=== PATIENT | male | born 1965 | race American Indian/Alaskan Native ===

== ENCOUNTER 2017-07-12 22:11 | Emergency (ER) | payer OTHER ==
[2017-07-12 22:52] VITALS: BP 125/79
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
== END 2017-07-13 01:42 | disposition home or self-care (01) ==
LOC: ED 22:11
DX: S80.02XA Contusion of left knee, initial encounter (principal); S80.01XA Contusion of right knee, initial encounter; S09.90XA Unspecified injury of head, initial encounter; S60.221A Contusion of right hand, initial encounter; V49.49XA Driver injured in collision with other motor vehicles in traffic accident, initial encounter; Y93.89 Activity, other specified; Y99.8 Other external cause status; Y92.410 Unspecified street and highway as the place of occurrence of the external cause
CPT/HCPCS: 70450; 99284

== ENCOUNTER 2017-11-12 13:25 | Emergency (ER) | payer OTHER ==
[2017-11-12 13:36] VITALS: BP 147/89
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
--- NOTE | 2017-11-12 15:18 | XRay Report ---
Right knee 2 views: History: Knee swelling. Findings: No acute abnormality. No fracture or dislocation. Suspicion of minimal fluid in the suprapatellar bursa. Impression: No obvious acute changes. If pain and swelling persists MRI scan may be recommended.
== END 2017-11-12 14:58 | disposition home or self-care (01) ==
LOC: ED 13:25
DX: M25.461 Effusion, right knee (principal); I10 Essential (primary) hypertension

== ENCOUNTER 2019-08-15 10:39 | Emergency (ER) | payer OTHER ==
--- NOTE | 2019-08-15 10:48 | Emergency Department Report ---
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 Patient denies any fever but does admit to headache and inability to sleep comfortably. Patient states minimal exertion causes him to have shortness of breath. Patient has a past medical history of sleep apnea, hypertension, sinuses, seasonal allergies. Patient has had close contact with [employer] positive employees as well as patients. MD Complaint: cough, other (SOB,Headache, body aches) Onset/Timin -: week(s) Consistency: constant Improves With: nothing Worsens With: activity, deep breaths Context: sick contacts Associated Symptoms: myalgias, headache, nasal congestion, sore throat, cough, shortness of breath, other (Sore throat) Treatments Prior to Arrival: "cold medicine" - Related Data Home Medications Medication Instructions Recorded Confirmed Last Taken Losartan/Hydrochlorothiazide 1 each PO QDAY 03/17/16 03/17/16 03/17/16 06:30 [Losartan-Hctz 100-25 mg Tab] traZODone [Desyrel] 100 mg PO QHS 03/17/16 03/17/16 03/16/16 22:00 Previous Rx's Medication Instructions Recorded Last Taken Type amLODIPine 5 mg PO DAILY #30 tab 03/17/16 Unknown Rx Metaxalone [Skelaxin] 800 mg PO TID #30 tablet 07/13/17 Unknown Rx Ondansetron [Zofran Odt] 4 mg PO Q8HR PRN #14 tab.rapdis 07/13/17 Unknown Rx Ondansetron [Zofran Odt] 4 mg PO Q8HR PRN #14 tab.rapdis 07/13/17 Unknown Rx traMADoL [Ultram 50 MG tab] 50 mg PO Q4HR PRN #14 tablet 07/13/17 Unknown Rx traMADoL [Ultram 50 MG tab] 50 mg PO Q4HR PRN #14 tablet 07/13/17 Unknown Rx Ibuprofen [Motrin] 800 mg PO Q8HR PRN #20 tablet 11/12/17 Unknown Rx traMADoL [Ultram] 50 mg PO Q6HR PRN #10 tablet 11/12/17 Unknown Rx Albuterol Sulfate [Proair 90 mcg IH QID PRN #1 aer.pow.ba 08/15/19 Unknown Rx Respiclick] predniSONE [Deltasone] 20 mg PO QDAY 5 Days #5 tab 08/15/19 Unknown Rx Allergies Allergy/AdvReac Type Severity Reaction Status Date / Time No Known Allergies Allergy Verified 03/17/16 08:55 ED Review of Systems ROS: Stated complaint: CAL Other details as noted in HPI ED Past Medical Hx - Past Medical History Hx Hypertension: Yes - Surgical History Additional Surgical History: left foot surgery, 2016 Right foot surgery 2009 - Social History Smoking Status: Never Smoker Substance Use Type: Alcohol - Medications Home Medications: Home Medications Medication Instructions Recorded Confirmed Last Taken Type Losartan/Hydrochlorothiazide 1 each PO QDAY 03/17/16 03/17/16 03/17/16 06:30 History [Losartan-Hctz 100-25 mg Tab] amLODIPine 5 mg PO DAILY #30 tab 03/17/16 Unknown Rx traZODone [Desyrel] 100 mg PO QHS 03/17/16 03/17/16 03/16/16 22:00 History Metaxalone [Skelaxin] 800 mg PO TID #30 tablet 07/13/17 Unknown Rx Ondansetron [Zofran Odt] 4 mg PO Q8HR PRN #14 tab.rapdis 07/13/17 Unknown Rx Ondansetron [Zofran Odt] 4 mg PO Q8HR PRN #14 tab.rapdis 07/13/17 Unknown Rx traMADoL [Ultram 50 MG tab] 50 mg PO Q4HR PRN #14 tablet 07/13/17 Unknown Rx traMADoL [Ultram 50 MG tab] 50 mg PO Q4HR PRN #14 tablet 07/13/17 Unknown Rx Ibuprofen [Motrin] 800 mg PO Q8HR PRN #20 tablet 11/12/17 Unknown Rx traMADoL [Ultram] 50 mg PO Q6HR PRN #10 tablet 11/12/17 Unknown Rx Albuterol Sulfate [Proair 90 mcg IH QID PRN #1 aer.pow.ba 08/15/19 Unknown Rx Respiclick] predniSONE [Deltasone] 20 mg PO QDAY 5 Days #5 tab 08/15/19 Unknown Rx ED Physical Exam - General General appearance: alert, in no apparent distress - Head Head exam: Present: atraumatic, normocephalic - Eye Eye exam: Present: normal appearance - ENT ENT exam: Present: mucous membranes moist - Respiratory Respiratory exam: Present: normal lung sounds bilaterally. Absent: respiratory distress - Cardiovascular Cardiovascular Exam: Present: regular rate, normal rhythm. Absent: systolic murmur, diastolic murmur, rubs, gallop - GI/Abdominal GI/Abdominal exam: Present: soft, normal bowel sounds - Neurological Exam Neurological exam: Present: alert, oriented X3, normal gait - Psychiatric Psychiatric exam: Present: normal affect, normal mood - Skin Skin exam: Present: warm, dry, intact, normal color. Absent: rash ED Course Vital Signs 08/15/19 10:48 Temperature 98.9 F Pulse Rate 56 L Respiratory 18 Rate Blood Pressure 128/56 O2 Sat by Pulse 98 Oximetry ED Medical Decision Making - Lab Data Result diagrams: 08/15/19 11:01 - Radiology Data Radiology results: report reviewed Print Report Referring Physician:BRUCE LEYVAPatient Name:NAE SANTOROPatient ID:[id number] of :[id number]:MaleAccession:[id number] Date:[id number] Status:Finalized Findings [address] [address] XRay Report Signed Patient: NAE SANTORO MR#: [id number] : 1965 Acct:[id number] Age/Sex: 54 / M ADM Date: 08/15/19 Loc: ED Attending Dr: Ordering Physician: FRANSISCO REINA Date of Service: 08/15/19 Procedure(s): XR chest routine 2V Accession Number(s): [id number] cc: FRANSISCO REINA Fluoro Time In Minutes: CHEST 2 VIEWS INDICATION / CLINICAL INFORMATION: sob,cough and rales. COMPARISON: None available. FINDINGS: SUPPORT DEVICES: None. HEART / MEDIASTINUM: No significant abnormality. LUNGS / PLEURA: No significant pulmonary or pleural abnormality. No pneumothorax. ADDITIONAL FINDINGS: No significant additional findings. IMPRESSION: 1. No acute findings. Signer Name: Leonel Vickers MD Signed: 08/15/2019 11:45 AM Workstation Name: [id number] Transcribed By: TL Dictated By: Leonel Vickers MD Electronically Authenticated By: Leonel Vickers MD Signed Date/Time: 08/15/19 1145 DD/ 1144 TD/TT: Critical care attestation.: If time is entered above; I have spent that time in minutes in the direct care of this critically ill patient, excluding procedure time. ED Disposition Clinical Impression: Dyspnea on exertion, Cough, Generalized body aches, Ventricular bigeminy Disposition: DC-01 TO HOME OR SELFCARE Is pt being admited?: No Does the pt Need Aspirin: No Condition: Stable Additional Instructions: Chest x-ray looks normal without acute abnormalities. Blood work is stable. Please take prednisone and albuterol inhaler as needed for shortness of breath. Tylenol for body aches. Follow-up with cardiology of listed 1 below for your convenience for your abnormal EKG. Prescriptions: predniSONE [Deltasone] 20 mg PO QDAY 5 Days #5 tab Albuterol Sulfate [Proair Respiclick] 90 mcg IH QID PRN #1 aer.pow.ba PRN Reason: Shortness Of Breath Referrals: Your, primary care provider [Other] - 3-5 Days DOMENICA SEAMAN MD [Staff Physician] - 3-5 Days [facility] [Provider Group] - 3-5 Days Forms: Work/School Release Form(ED)
[2019-08-15 10:50] VITALS: BP 128/56
[2019-08-15 11:41] LABS: Basophils % (Auto) 0.5 % (0.0-1.8); Eosinophils % (Auto) 0.2 % (0.0-4.3); Hematocrit 41.3 % (35.5-45.6); Lymphocytes % (Auto) 36.9 % (13.4-35.0); Mean Corpuscular HGB Conc 32 % (32-34); Mean Corpuscular Volume 71 fl (84-94); Monocytes # (Auto) 0.5 K/mm3 (0.0-0.8); Monocytes % (Auto) 10.2 % (0.0-7.3); Platelet Count 178 K/mm3 (140-440); Red Blood Count 5.82 M/mm3 (3.65-5.03); Red Cell Distribution Width 15.5 % (13.2-15.2)
--- NOTE | 2019-08-15 11:49 | XRay Report ---
CHEST 2 VIEWS INDICATION / CLINICAL INFORMATION: sob,cough and rales. COMPARISON: None available. FINDINGS: SUPPORT DEVICES: None. HEART / MEDIASTINUM: No significant abnormality. LUNGS / PLEURA: No significant pulmonary or pleural abnormality. No pneumothorax. ADDITIONAL FINDINGS: No significant additional findings. IMPRESSION: 1. No acute findings. Signer Name: Leonel Vickers MD Signed: 08/15/2019 11:45 AM Workstation Name: [id number]
[2019-08-15 12:06] LABS: Alanine Aminotransferase 20 units/L (7-56); Albumin 3.9 g/dL (3.9-5); BUN/Creatinine Ratio 9; Blood Urea Nitrogen 12 mg/dL (9-20); Calcium 9.2 mg/dL (8.4-10.2); Hemolysis Index 8
== END 2019-08-15 12:24 | disposition home or self-care (01) ==
LOC: ED 10:39
DX: R06.09 Other forms of dyspnea (principal); R05 Cough; R00.8 Other abnormalities of heart beat; M79.10 Myalgia, unspecified site; I10 Essential (primary) hypertension; Z98.890 Other specified postprocedural states; Z79.899 Other long term (current) drug therapy
CPT/HCPCS: 36415; 71046; 80053; 82728; 83615; 84145; 85025; 85379; 86140; 93005

== ENCOUNTER 2020-04-30 11:58 | Emergency (ER) | payer OTHER ==
[2020-04-30 12:11] VITALS: BP 152/96
--- NOTE | 2020-04-30 12:14 | Emergency Department Report ---
ED Upper Extremity Inj HPI - General Stated Complaint: RT SHOULDER INJURY Time Seen by Provider: 04/30/20 12:09 - History of Present Illness Initial Comments: 55-year-old -[place] male presents to the emergency room concern for right shoulder and right upper bicep pain with ecchymosis. Patient states he believes he lifted something heavy but was not aware of it until the next day or 2 when he noticed he had large hematoma. Patient denies any falls. Denies any direct blow. No shortness of breath no chest pain. Patient does have chronic h istory of neck pain and chronic right shoulder pain. Patient is a past medical history of high blood pressure and is currently being followed by primary care Dr. Christian. Complaint: Injury to:: right, shoulder Onset/Timin -: days(s) Other Extremity Injury: Arm: Right, Shoulder: Right Other Injuries: none Handedness: right Severity scale (0 -10): 5 Improves With: none Worsens With: movement of extremity Associated Symptoms: denies other symptoms - Related Data Home Medications Medication Instructions Recorded Confirmed Last Taken Losartan/Hydrochlorothiazide 1 each PO QDAY 03/17/16 03/17/16 03/17/16 06:30 [Losartan-Hctz 100-25 mg Tab] traZODone [Desyrel] 100 mg PO QHS 03/17/16 03/17/16 03/16/16 22:00 Previous Rx's Medication Instructions Recorded Last Taken Type amLODIPine 5 mg PO DAILY #30 tab 03/17/16 Unknown Rx Metaxalone [Skelaxin] 800 mg PO TID #30 tablet 07/13/17 Unknown Rx Ondansetron [Zofran Odt] 4 mg PO Q8HR PRN #14 tab.rapdis 07/13/17 Unknown Rx Ondansetron [Zofran Odt] 4 mg PO Q8HR PRN #14 tab.rapdis 07/13/17 Unknown Rx traMADoL [Ultram 50 MG tab] 50 mg PO Q4HR PRN #14 tablet 07/13/17 Unknown Rx traMADoL [Ultram 50 MG tab] 50 mg PO Q4HR PRN #14 tablet 07/13/17 Unknown Rx Ibuprofen [Motrin] 800 mg PO Q8HR PRN #20 tablet 11/12/17 Unknown Rx traMADoL [Ultram] 50 mg PO Q6HR PRN #10 tablet 11/12/17 Unknown Rx Albuterol Sulfate [Proair 90 mcg IH QID PRN #1 aer.pow.ba 08/15/19 Unknown Rx Respiclick] predniSONE [Deltasone] 20 mg PO QDAY 5 Days #5 tab 08/15/19 Unknown Rx traMADoL [Ultram 50 MG tab] 50 mg PO Q6HR PRN #15 tablet 04/30/20 Unknown Rx Allergies Allergy/AdvReac Type Severity Reaction Status Date / Time No Known Allergies Allergy Verified 03/17/16 08:55 ED Review of Systems ROS: Stated complaint: RT SHOULDER INJURY Other details as noted in HPI Comment: All other systems reviewed and negative ED Past Medical Hx - Past Medical History Hx Hypertension: Yes - Surgical History Additional Surgical History: left foot surgery, 2016 Right foot surgery 2009 - Social History Smoking Status: Never Smoker Substance Use Type: Alcohol - Medications Home Medications: Home Medications Medication Instructions Recorded Confirmed Last Taken Type Losartan/Hydrochlorothiazide 1 each PO QDAY 03/17/16 03/17/16 03/17/16 06:30 History [Losartan-Hctz 100-25 mg Tab] amLODIPine 5 mg PO DAILY #30 tab 03/17/16 Unknown Rx traZODone [Desyrel] 100 mg PO QHS 03/17/16 03/17/16 03/16/16 22:00 History Metaxalone [Skelaxin] 800 mg PO TID #30 tablet 07/13/17 Unknown Rx Ondansetron [Zofran Odt] 4 mg PO Q8HR PRN #14 tab.rapdis 07/13/17 Unknown Rx Ondansetron [Zofran Odt] 4 mg PO Q8HR PRN #14 tab.rapdis 07/13/17 Unknown Rx traMADoL [Ultram 50 MG tab] 50 mg PO Q4HR PRN #14 tablet 07/13/17 Unknown Rx traMADoL [Ultram 50 MG tab] 50 mg PO Q4HR PRN #14 tablet 07/13/17 Unknown Rx Ibuprofen [Motrin] 800 mg PO Q8HR PRN #20 tablet 11/12/17 Unknown Rx traMADoL [Ultram] 50 mg PO Q6HR PRN #10 tablet 11/12/17 Unknown Rx Albuterol Sulfate [Proair 90 mcg IH QID PRN #1 aer.pow.ba 08/15/19 Unknown Rx Respiclick] predniSONE [Deltasone] 20 mg PO QDAY 5 Days #5 tab 08/15/19 Unknown Rx traMADoL [Ultram 50 MG tab] 50 mg PO Q6HR PRN #15 tablet 04/30/20 Unknown Rx ED Physical Exam - General General appearance: alert, in no apparent distress - Head Head exam: Present: atraumatic, normocephalic - Eye Eye exam: Present: normal appearance - ENT ENT exam: Present: mucous membranes moist - Neck Neck exam: Present: normal inspection, full ROM - Respiratory Respiratory exam: Absent: accessory muscle use - Cardiovascular Cardiovascular Exam: Present: regular rate, normal rhythm. Absent: systolic murmur, diastolic murmur, rubs, gallop - Expanded Upper Extremity Exam Right Shoulder Exam: Present: full ROM, tenderness. Absent: deformity, crepidus Upper Arm exam: Present: full ROM, swelling, ecchymosis Elbow exam: Present: normal inspection Forearm Wrist exam: Present: normal inspection Hand Wrist exam: Present: normal inspection - Back Exam Back exam: Present: normal inspection - Neurological Exam Neurological exam: Present: alert, oriented X3, normal gait - Psychiatric Psychiatric exam: Present: normal affect, normal mood - Skin Skin exam: Present: warm, dry, intact, normal color. Absent: rash ED Course Vital Signs 04/30/20 12:10 Temperature 98.1 F Pulse Rate 71 Respiratory 16 Rate Blood Pressure 152/96 [152/96] O2 Sat by Pulse 98 Oximetry ED Medical Decision Making - Lab Data Result diagrams: 04/30/20 12:23 - Radiology Data Radiology results: report reviewed Patient: NAE SANTORO MR#: [id number] : 1965 Acct:[id number] Age/Sex: 55 / M ADM Date: 04/30/20 Loc: ED Attending Dr: Ordering Physician: FRANSISCO REINA Date of Service: 04/30/20 Procedure(s): XR shoulder 2+V RT Accession Number(s): [id number] cc: FRANSISCO REINA Fluoro Time In Minutes: RIGHT SHOULDER 3 VIEWS INDICATION: Acute right shoulder pain. COMPARISON: None. IMPRESSION: Normal bone mineralization. Mild osteoarthritic changes are identified. No evidence for fracture, dislocation or ligamentous injury. Focal calcification overlies the distal portions of the supraspinatus or infraspinatus tendon suggesting calcific tendinitis. Signer Name: John Egan Jr, MD Signed: 04/30/2020 12:44 PM Workstation Name: [id number] Transcribed By: TTR Dictated By: JOHN EGAN JR, MD Electronically Authenticated By: JOHN EGAN JR, MD Signed Date/Time: 04/30/20 1244 DD/ 1243 TD/TT: - Medical Decision Making 55-year-old -[place] male presents to the emergency room concern for right shoulder and right upper bicep pain with ecchymosis. Patient states he believes he lifted something heavy but was not aware of it until the next day or 2 when he noticed he had large hematoma. Patient denies any falls. Denies any direct blow. No shortness of breath no chest pain. Patient does have chronic history of neck pain and chronic right shoulder pain. Patient is a past medical history of high blood pressure and is currently being followed by primary care Dr. Christian. CBC, PT PTT x-ray of right shoulder X-ray of right shoulder Normal bone mineralization. Mild osteoarthritic changes are identified. No evidence for fracture, dislocation or ligamentous injury. Focal calcification overlies the distal portions of the supraspinatus or infraspinatus tendon suggesting calcific tendinitis. PT PTT within normal limits. CBC shows a mild iron deficiency otherwise no anemia Critical care attestation.: If time is entered above; I have spent that time in minutes in the direct care of this critically ill patient, excluding procedure time. ED Disposition Clinical Impression: Shoulder pain, right Qualifiers: Chronicity: acute Qualified Code(s): M25.511 - Pain in right shoulder Disposition: DC-01 TO HOME OR SELFCARE Is pt being admited?: No Does the pt Need Aspirin: No Condition: Stable Instructions: Shoulder Pain, [id number], Joint Pain, [id number] Additional Instructions: Neg shoulder x-ray. Prescriptions: traMADoL [Ultram 50 MG tab] 50 mg PO Q6HR PRN #15 tablet PRN Reason: Pain Forms: Work/School Release Form(ED)
--- NOTE | 2020-04-30 12:49 | XRay Report ---
RIGHT SHOULDER 3 VIEWS INDICATION: Acute right shoulder pain. COMPARISON: None. IMPRESSION: Normal bone mineralization. Mild osteoarthritic changes are identified. No evidence for fracture, dislocation or ligamentous injury. Focal calcification overlies the distal portions of the supraspinatus or infraspinatus tendon suggesting calcific tendinitis. Signer Name: John Egan Jr, MD Signed: 04/30/2020 12:44 PM Workstation Name: [id number]
[2020-04-30 13:40] LABS: Basophils # (Auto) 0.1 K/mm3 (0.0-0.1); Basophils % (Auto) 0.8 % (0.0-1.8); Eosinophils # (Auto) 0.1 K/mm3 (0.0-0.4); Eosinophils % (Auto) 1.1 % (0.0-4.3); Hemoglobin 11.7 gm/dl (11.8-15.2); Lymphocytes # (Auto) 2.5 K/mm3 (1.2-5.4); Lymphocytes % (Auto) 35.1 % (13.4-35.0); Mean Corpuscular HGB Conc 32 % (32-34); Mean Corpuscular Volume 70 fl (84-94); Monocytes # (Auto) 0.6 K/mm3 (0.0-0.8); Monocytes % (Auto) 8.2 % (0.0-7.3); Platelet Count 229 K/mm3 (140-440); Red Blood Count 5.27 M/mm3 (3.65-5.03)
[2020-04-30 13:48] LABS: INR 0.97 (0.87-1.13)
[2020-04-30 13:49] LABS: Partial Thromboplastin Time 27.5 Sec. (24.2-36.6)
== END 2020-04-30 14:50 | disposition home or self-care (01) ==
LOC: ED 11:58
DX: M25.511 Pain in right shoulder (principal); I10 Essential (primary) hypertension; Z79.899 Other long term (current) drug therapy; Z98.890 Other specified postprocedural states
CPT/HCPCS: 36415; 85025; 85610; 85730

== ENCOUNTER 2021-10-09 18:22 | Emergency (ER) | payer OTHER ==
--- NOTE | 2021-10-09 19:46 | Vascular Lab Report ---
DUPLEX DOPPLER LOWER EXTREMITY VEINS, RIGHT INDICATION / CLINICAL INFORMATION: RLE pain and swelling, hx of DVT. TECHNIQUE: Duplex doppler imaging was performed through the veins of the right lower extremity using venous comp ression and other maneuvers. COMPARISON: None available. FINDINGS: RIGHT COMMON FEMORAL VEIN: Negative. RIGHT FEMORAL VEIN: Negative. RIGHT POPLITEAL VEIN: Negative. RIGHT CALF VEINS: Negative. ADDITIONAL FINDINGS: None. IMPRESSION: 1. No sonographic evidence for DVT in the right lower extremity. Signer Name: Leonel Vickers MD Signed: 10/09/2021 7:41 PM Workstation Name: [id number]
[2021-10-09] MEDS ORDERED: oxyCODONE /ACETAMINOPHEN 5-325MG TAB PO ONE (19:48)
[2021-10-09] MEDS ORDERED: ONDANSETRON 4 MG ODT TAB PO ONE (19:48)
[2021-10-09] MEDS ORDERED: KETOROLAC 30 MG/1 ML INJ IM ONE (19:48)
[2021-10-09] MEDS ORDERED: dexAMETHasone 20 MG/5 ML VIAL IM ONE (19:48)
[2021-10-09 20:15] LABS: Basophils # (Auto) 0.1 K/mm3 (0.0-0.1); Basophils % (Auto) 0.7 % (0.0-1.8); Eosinophils # (Auto) 0.1 K/mm3 (0.0-0.4); Eosinophils % (Auto) 0.8 % (0.0-4.3); Hematocrit 39.1 % (35.5-45.6); Hemoglobin 12.2 gm/dl (11.8-15.2); Lymphocytes # (Auto) 3.7 K/mm3 (1.2-5.4); Lymphocytes % (Auto) 36.5 % (13.4-35.0); Mean Corpuscular HGB Conc 31 % (32-34); Mean Corpuscular Volume 70 fl (84-94); Monocytes # (Auto) 0.8 K/mm3 (0.0-0.8); Monocytes % (Auto) 7.9 % (0.0-7.3); Platelet Count 212 K/mm3 (140-440); Red Blood Count 5.59 M/mm3 (3.65-5.03); Red Cell Distribution Width 16.1 % (13.2-15.2)
--- NOTE | 2021-10-09 20:21 | XRay Report ---
RIGHT FOOT 3 VIEW(S) INDICATION / CLINICAL INFORMATION: Pain COMPARISON: None available. FINDINGS: BONES / JOINT(S): No acute fracture or subluxation. Previous bunionectomy and chevron osteotomy with 2 screws seen within the first metatarsal shaft. Mild degenerative arthrosis first MTP joint. SOFT TISSUES: No significant abnormality. ADDITIONAL FINDINGS: None. IMPRESSION: 1. No acute findings. Signer Name: Leonel Vickers MD Signed: 10/09/2021 8:17 PM Workstation Name: [id number]
--- NOTE | 2021-10-09 20:35 | Emergency Department Report ---
ED Extremity Problem HPI - General Chief complaint: Extremity Problem,Nontraumatic Stated complaint: RT FOOT Source: patient Mode of arrival: Ambulatory Limitations: No Limitations - History of Present Illness Initial comments: Patient is a 56-year-old male with a history of hypertension who presents to the ED with complaint of acute onset persistent nontraumatic right foot pain for the last 5 days. Patient states that he has been on his feet most of the week at work but that the pain has been progressively getting worse like that in the last 12 hours he has not been able to bear weight on the right foot because of worsening pain. Patient states that the pain starts on the lateral right foot and radiates proximally to the right calf. Patient denies fall, traumatic in jury, heavy lifting, chest pain or shortness of breath, numbness and tingling or weakness of right foot, dizziness, syncope, nausea and vomiting, low back pain, fever and chills. MD Complaint: extremity pain (right foot pain), extremity swelling (Right foot pain and swelling), joint swelling (Right lateral foot swelling and pain), joint paint -: Sudden, days(s) (5) Location: right, lower extremity (Right foot pain and swelling) History of Same: No -: Yes arthralgia (Right foot presents with), No fever, No associated dyspnea, No associated chest pain Radiation: distal Severity scale (0 -10): 8 Quality: aching, sharp Consistency: constant Improves with: nothing Worsens with: weight bearing, walking, exertion, palpation Associated Symptoms: denies other symptoms, arthralgias (Right foot pain and swelling). denies: chest pain, shortness of breath, fever, myalgias - Related Data Home Medications Medication Instructions Recorded Confirmed Last Taken Losartan/Hydrochlorothiazide 1 each PO QDAY 03/17/16 03/17/16 03/17/16 06:30 [Losartan-Hctz 100-25 mg Tab] traZODone [Desyrel] 100 mg PO QHS 03/17/16 03/17/16 03/16/16 22:00 Previous Rx's Medication Instructions Recorded Last Taken Type amLODIPine 5 mg PO DAILY #30 tab 03/17/16 Unknown Rx Ibuprofen [Motrin] 800 mg PO Q8HR PRN #30 tablet 03/15/17 Unknown Rx Metaxalone [Skelaxin] 800 mg PO TID #30 tablet 07/13/17 Unknown Rx Ondansetron [Zofran Odt] 4 mg PO Q8HR PRN #14 tab.rapdis 07/13/17 Unknown Rx Ondansetron [Zofran Odt] 4 mg PO Q8HR PRN #14 tab.rapdis 07/13/17 Unknown Rx traMADoL [Ultram 50 MG tab] 50 mg PO Q4HR PRN #14 tablet 07/13/17 Unknown Rx traMADoL [Ultram 50 MG tab] 50 mg PO Q4HR PRN #14 tablet 07/13/17 Unknown Rx Ibuprofen [Motrin] 800 mg PO Q8HR PRN #20 tablet 11/12/17 Unknown Rx traMADoL [Ultram] 50 mg PO Q6HR PRN #10 tablet 11/12/17 Unknown Rx Albuterol Sulfate [Proair 90 mcg IH QID PRN #1 aer.pow.ba 08/15/19 Unknown Rx Respiclick] predniSONE [Deltasone] 20 mg PO QDAY 5 Days #5 tab 08/15/19 Unknown Rx traMADoL [Ultram 50 MG tab] 50 mg PO Q6HR PRN #15 tablet 04/30/20 Unknown Rx Colchicine 0.6 mg PO DAILY #30 tab 10/09/21 Unknown Rx Indomethacin 50 mg PO Q8H #90 cap 10/09/21 Unknown Rx predniSONE [Deltasone] 60 mg PO QDAY #15 tab 10/09/21 Unknown Rx traMADoL [Ultram 50 MG tab] 50 mg PO Q6HR PRN #15 tablet 10/09/21 Unknown Rx Allergies Allergy/AdvReac Type Severity Reaction Status Date / Time No Known Allergies Allergy Verified 10/09/21 19:06 ED Review of Systems ROS: Stated complaint: RT FOOT Other details as noted in HPI Constitutional: denies: chills, fever Eyes: denies: eye pain, eye discharge, vision change ENT: denies: ear pain, throat pain Respiratory: denies: cough, shortness of breath, wheezing Cardiovascular: denies: chest pain, palpitations Endocrine: no symptoms reported Gastrointestinal: denies: abdominal pain, nausea, vomiting, diarrhea Genitourinary: denies: urgency, dysuria Musculoskeletal: joint swelling (Right foot pain and swelling), arthralgia (Right foot pain and swelling). denies: back pain, myalgia Skin: denies: rash, lesions Neurological: denies: headache, weakness, paresthesias Psychiatric: denies: anxiety, depression Hematological/Lymphatic: denies: easy bleeding, easy bruising ED Past Medical Hx - Past Medical History Hx Hypertension: Yes - Surgical History Additional Surgical History: L & R foot surgery - Social History Smoking Status: Never Smoker Substance Use Type: Alcohol - Medications Home Medications: Home Medications Medication Instructions Recorded Confirmed Last Taken Type Losartan/Hydrochlorothiazide 1 each PO QDAY 03/17/16 03/17/16 03/17/16 06:30 History [Losartan-Hctz 100-25 mg Tab] amLODIPine 5 mg PO DAILY #30 tab 03/17/16 Unknown Rx traZODone [Desyrel] 100 mg PO QHS 03/17/16 03/17/16 03/16/16 22:00 History Ibuprofen [Motrin] 800 mg PO Q8HR PRN #30 tablet 03/15/17 Unknown Rx Metaxalone [Skelaxin] 800 mg PO TID #30 tablet 07/13/17 Unknown Rx Ondansetron [Zofran Odt] 4 mg PO Q8HR PRN #14 tab.rapdis 07/13/17 Unknown Rx Ondansetron [Zofran Odt] 4 mg PO Q8HR PRN #14 tab.rapdis 07/13/17 Unknown Rx traMADoL [Ultram 50 MG tab] 50 mg PO Q4HR PRN #14 tablet 07/13/17 Unknown Rx traMADoL [Ultram 50 MG tab] 50 mg PO Q4HR PRN #14 tablet 07/13/17 Unknown Rx Ibuprofen [Motrin] 800 mg PO Q8HR PRN #20 tablet 11/12/17 Unknown Rx traMADoL [Ultram] 50 mg PO Q6HR PRN #10 tablet 11/12/17 Unknown Rx Albuterol Sulfate [Proair 90 mcg IH QID PRN #1 aer.pow.ba 08/15/19 Unknown Rx Respiclick] predniSONE [Deltasone] 20 mg PO QDAY 5 Days #5 tab 08/15/19 Unknown Rx traMADoL [Ultram 50 MG tab] 50 mg PO Q6HR PRN #15 tablet 04/30/20 Unknown Rx Colchicine 0.6 mg PO DAILY #30 tab 10/09/21 Unknown Rx Indomethacin 50 mg PO Q8H #90 cap 10/09/21 Unknown Rx predniSONE [Deltasone] 60 mg PO QDAY #15 tab 10/09/21 Unknown Rx traMADoL [Ultram 50 MG tab] 50 mg PO Q6HR PRN #15 tablet 10/09/21 Unknown Rx ED Physical Exam - General Limitations: No Limitations General appearance: alert, in no apparent distress - Head Head exam: Present: atraumatic, normocephalic, normal inspection - Eye Eye exam: Present: normal appearance, PERRL, EOMI Pupils: Present: normal accommodation - ENT ENT exam: Present: normal exam, normal orophraynx, mucous membranes moist, TM's normal bilaterally, normal external ear exam - Neck Neck exam: Present: normal inspection, full ROM. Absent: tenderness - Respiratory Respiratory exam: Present: normal lung sounds bilaterally. Absent: respiratory distress, wheezes, rales, rhonchi, chest wall tenderness, accessory muscle use, decreased breath sounds, prolonged expiratory - Cardiovascular Cardiovascular Exam: Present: regular rate, normal rhythm, normal heart sounds. Absent: systolic murmur, diastolic murmur, rubs, gallop - GI/Abdominal GI/Abdominal exam: Present: soft, normal bowel sounds. Absent: tenderness, guarding, rebound, hyperactive bowel sounds, hypoactive bowel sounds, organomegaly, mass - Extremities Exam Extremities exam: Present: normal inspection, tenderness (Palpable right foot tenderness with swelling on the lateral aspect and right ankle), normal capillary refill, joint swelling, other (Palpable lateral right ankle tenderness with swelling). Absent: full ROM (Limited range of motion due to pain), pedal edema, calf tenderness - Back Exam Back exam: Present: normal inspection, full ROM. Absent: tenderness, CVA tenderness (R), CVA tenderness (L), muscle spasm, paraspinal tenderness, vertebral tenderness - Neurological Exam Neurological exam: Present: alert, oriented X3, CN II-XII intact, normal gait, reflexes normal - Psychiatric Psychiatric exam: Present: normal affect, normal mood - Skin Skin exam: Present: warm, dry, intact, normal color. Absent: rash ED Course Vital Signs 10/09/21 19:05 Temperature 97.6 F Pulse Rate 88 Respiratory 18 Rate Blood Pressure 146/86 O2 Sat by Pulse 98 Oximetry ED Medical Decision Making - Lab Data Result diagrams: 10/09/21 19:59 10/09/21 19:59 - Radiology Data Radiology results: report reviewed, image reviewed [facility] [address] [place] [address] Vascular Lab Report Signed Patient: NAE SANTORO MR#: [id number] : 1965 Acct:[id number] Age/Sex: 56 / M ADM Date: 10/09/21 Loc: ED Attending Dr: Ordering Physician: SKYE CUMMINGS DO Date of Service: 10/09/21 Procedure(s): VL venous duplex LE RT Accession Number(s): [id number] cc: SKYE CUMMINGS DO DUPLEX DOPPLER LOWER EXTREMITY VEINS, RIGHT INDICATION / CLINICAL INFORMATION: RLE pain and swelling, hx of DVT. TECHNIQUE: Duplex doppler imaging was performed through the veins of the right lower extremity using venous compression and other maneuvers. COMPARISON: None available. FINDINGS: RIGHT COMMON FEMORAL VEIN: Negative. RIGHT FEMORAL VEIN: Negative. RIGHT POPLITEAL VEIN: Negative. RIGHT CALF VEINS: Negative. ADDITIONAL FINDINGS: None. IMPRESSION: 1. No sonographic evidence for DVT in the right lower extremity. Signer Name: Leonel Vickers MD Signed: 10/09/2021 7:41 PM Workstation Name: [id number] Transcribed By: TL Dictated By: Leonel Vickers MD Electronically Authenticated By: Leonel Vickers MD Signed Date/Time: 10/09/211940 DD/ 40 TD/TT: [facility] [address] [place] [address] XRay Report Signed Patient: NAE SANTORO MR#: [id number] : 1965 Acct:[id number] Age/Sex: 56 / M ADM Date: 10/09/21 Loc: ED Attending Dr: Ordering Physician: FRANSISCO PICKARD Date of Service: 10/09/21 Procedure(s): XR foot 3+V RT Accession Number(s): [id number] cc: FRANSISCO PICKARD Fluoro Time In Minutes: RIGHT FOOT 3 VIEW(S) INDICATION / CLINICAL INFORMATION: Pain COMPARISON: None available. FINDINGS: BONES / JOINT(S): No acute fracture or subluxation. Previous bunionectomy and chevron osteotomy with 2 screws seen within the first metatarsal shaft. Mild degenerative arthrosis first MTP joint. SOFT TISSUES: No significant abnormality. ADDITIONAL FINDINGS: None. IMPRESSION: 1. No acute findings. Signer Name: Leonel Vickers MD Signed: 10/09/2021 8:17 PM Workstation Name: [id number] Transcribed By: TL Dictated By: Leonel Vickers MD Electronically Authenticated By: Leonel Vickers MD Signed Date/Time: 10/09/212016 DD/ 15 TD/TT: - Medical Decision Making This is a 56-year-old male with a history of hypertension who presents to the ED with complaint of acute onset persistent nontraumatic right foot pain for the last 5 days. Patient states that he has been on his feet most of the week at work but that the pain has been progressively getting worse like that in the last 12 hours he has not been able to bear weight on the right foot because of worsening pain. Patient states that the pain starts on the lateral right foot and radiates proximally to the right calf. In the ED, patient is alert and oriented x3 and is not in any distress. Patient however appears to be in significant pain. Patient was treated for pain in the ED and also received Decadron 10 mg intramuscular injection. Right foot x-ray showed no acute fractures or subluxations. Right lower leg Doppler ultrasound showed no sonographic evidence of DVT. All lab test results were reviewed and are all nonactionable except for creatinine of 1.8 and uric acid of 8.0. Patient symptoms are likely due to acute gouty arthropathy. On reevaluation, patient's pain is well controlled medication. Patient was discharged home on pain medications and colchicine as well as oral steroids and advised to follow-up with his primary care physician in 7 to 10 days for reevaluation. Patient advised to drink plenty of fluids also to improve on his kidney functions. Patient was advised to return to the ED immediately if symptoms get worse - Differential Diagnosis Gouty arthropathy; tendinitis; muscle strain; osteoarthritis; Critical care attestation.: If time is entered above; I have spent that time in minutes in the direct care of this critically ill patient, excluding procedure time. ED Disposition Clinical Impression: Acute gouty arthropathy, Tendinitis of right foot, Dehydration Disposition: HOME / SELF CARE / HOMELESS Is pt being admited?: No Does the pt Need Aspirin: No Condition: Stable Instructions: Dehydration, Adult, [id number]-[id number], Low-Purine Eating Plan, Tendinitis, [id number] Additional Instructions: All lab test results were reviewed and are all nonactionable except for elevated uric acid level consistent with acute gouty arthropathy and slight elevated creatinine level consistent with dehydration. The right foot x-ray showed no acute fractures or subluxations. The right lower extremity Doppler ultrasound showed no sonographic evidence of DVT. Therefore take medication with food, drink plenty of fluids, follow-up with your primary care physician in 7 to 10 days for reevaluation. Return to the ED immediately if symptoms get worse. Prescriptions: Colchicine 0.6 mg PO DAILY #30 tab predniSONE [Deltasone] 60 mg PO QDAY #15 tab Indomethacin 50 mg PO Q8H #90 cap traMADoL [Ultram 50 MG tab] 50 mg PO Q6HR PRN #15 tablet PRN Reason: Pain Referrals: DOMENICA SEAMAN MD [Primary Care Provider] - 7-10 days Forms: Work/School Release Form(ED) Time of Disposition: 21:03 Print Language: CANADIAN
[2021-10-09 20:38] LABS: Albumin 4.1 g/dL (3.9-5); Calcium 9.3 mg/dL (8.4-10.2)
[2021-10-09] MEDS ORDERED: COLCHICINE 0.6 MG TAB PO ONE (21:01)
[2021-10-09 21:58] VITALS: BP 152/88
== END 2021-10-09 21:58 | disposition home or self-care (01) ==
LOC: ED 18:22
DX: M10.9 Gout, unspecified (principal); M77.8 Other enthesopathies, not elsewhere classified; E86.0 Dehydration; I10 Essential (primary) hypertension; Z79.899 Other long term (current) drug therapy
CPT/HCPCS: 36415; 73630; 80053; 84550; 85025; 93971; 96372; 99284; J1100; J1885; J3490; Q0162